=== PATIENT | female | born 1940 | race Caucasian/White ===

== ENCOUNTER 2020-10-28 22:21 | Emergency (ER) | payer OTHER, SELFPAY ==
--- NOTE | 2020-10-28 22:27 | DI.RAD.S_ITS ---
PROCEDURE: XR ANKLE RT MIN 3V INDICATIONS: deformity TECHNIQUE: 3 views of the ankle were acquired. COMPARISON: None. FINDINGS: Bones: There are both fractures and dislocation, involving the distal tibia and fibula. Fibular fractures are comminuted, and dorsally angulated on the lateral view. The tibial fracture appears to include a posterior malleolar avulsion, and anterior dislocation of the tibial plafond and from the talar dome.. Ankle mortise is normally aligned. No suspicious bony lesions. Soft tissues: No tibiotalar joint effusion. Achilles tendon appears normal. IMPRESSION: Fracture dislocations at the distal tibia and fibula with anterior dislocation of the distal tibial plafond and secondary posterior angulation at the comminuted distal fibular fracture. Orthopedic surgical intervention is anticipated. Dictated by: Chuck Chun M.D. on 10/29/2020 at 9:06 Approved by: Chuck Chun M.D. on 10/29/2020 at 9:08
[2020-10-28 22:28] VITALS: BP 177/76; PULSE 62; RESP 14; TEMP 36.6; O2SAT 95; BMI 28.1
--- NOTE | 2020-10-28 23:06 | DI.RAD.S_ITS ---
PROCEDURE: XR ANKLE RT MIN 3V INDICATIONS: post reduction TECHNIQUE: 3 views of the ankle were acquired. COMPARISON: [facility], CR, XR ANKLE RT MIN 3V, 10/28/2020, 22:28. FINDINGS: Bones: No new fractures or dislocations and there has been successful reduction of the fracture dislocation at the right ankle. It is now clear that there is a vertically oriented fracture above the medial border of the tibial plafond and, at the base of the lateral malleolus in that area.. Ankle mortise is normally aligned. No suspicious bony lesions. Soft tissues: No tibiotalar joint effusion. Achilles tendon appears normal. IMPRESSION: Reduction of fractured dislocation with significant remaining in malalignment and fractures now are seen at the high base of the medial malleolus, at the distal fibular metadiaphyseal junction, likely at the posterior malleolus and likely also at the anterior malleolus where a chip margin fracture may be present. Dictated by: Chuck Chun M.D. on 10/29/2020 at 9:54 Approved by: Chuck Chun M.D. on 10/29/2020 at 10:07
--- NOTE | 2020-10-28 23:06 | ED.LOWEXIN ---
HPI - Extremity Injury (Lower) General Chief Complaint: Extremity Injury, Lower Stated Complaint: Fall Time Seen by Provider: 10/28/20 22:38 Source: patient and EMS Mode of arrival: EMS Limitations: no limitations History of Present Illness HPI Narrative: Patient is a 80-year-old female. Not on anticoagulation here for evaluation of a right ankle injury. Patient states that earlier this evening she was coming down some steps and she missed a step. In order to avoid falling on concrete she twisted herself and in the process injured her right leg. She was then able to ambulate afterwards. EMS was called. She denied hitting her head. There was no loss of conscious. No neck pain. No other injuries except for the right ankle pain. Related Data Previous Rx's Medication Instructions Recorded hydrocodone 5 mg-acetaminophen 325 1 tab PO Q4-6H PRN #20 tab 10/29/20 mg tablet Allergies Allergy/AdvReac Type Severity Reaction Status Date / Time No Known Drug Allergies Allergy Verified 10/28/20 22:38 Review of Systems Constitutional Constitutional: Reports system reviewed and no additional complaints, except as documented Eyes Eyes: Reports system reviewed and no additional complaints, except as documented ENT Ears, Nose, Mouth, and Throat: Reports system reviewed and no additional complaints, except as documented Cardiovascular Cardiovascular: Reports system reviewed and no additional complaints, except as documented Respiratory Respiratory: Reports system reviewed and no additional complaints, except as documented Gastrointestinal Gastrointestinal: Reports system reviewed and no additional complaints, except as documented Musculoskeletal Comments: Right ankle pain Integumentary/Breasts Skin/Breast: Reports system reviewed and no additional complaints, except as documented Neurologic Neurologic: Reports system reviewed and no additional complaints, except as documented Psychiatric Psychiatric: Reports system reviewed and no additional complaints, except as documented Hematologic/Lymphatic On Anticoagulants: No Allergic/Immunologic Allergic/Immunologic: Reports system reviewed and no additional complaints, except as documented Patient History Medical History Hypertension Social History Smoking Status: Never smoker Smoking Status: Never smoker alcohol intake frequency: holidays/special occasions only Substance Use Type: does not use Exam Initial Vital Signs Initial Vital Signs: Vital Signs Temperature 98 F 10/28/20 22:28 Pulse Rate 62 10/28/20 22:28 Respiratory Rate 14 10/28/20 22:28 Blood Pressure 177/76 H 10/28/20 22:28 Pulse Oximetry 95 10/28/20 22:28 Const General: cooperative, healthy appearing and comfortable HENMT Head: normal to inspection and normocephalic Eyes General: appearance normal, both eyes and all related structures Resp Effort & Inspection: normal respiratory effort Cardio Rate: regular rate Pulses: dorsalis pedis present on the right GI Inspection: normal to inspection Back/Spine/Pelvis Cervical Spine: No cervical spinal tenderness Skin General: no rashes or lesions noted Neuro General: patient alert, patient awake and patient oriented x3 Sensory Exam: no sensory deficits noted Extrem Other: Bilateral upper extremities unremarkable. Pelvis is stable. Left lower extremity unremarkable. Patient's right hip and right knee unremarkable. Has obvious deformity to the right ankle. Psych Appearance: grossly normal and well kempt Procedures Orthopedic Fracture Reduction Fracture #1: Time Out Performed: Yes Side: right Fracture Reduction Location: tibia and fibula Analgesia: procedural sedation Technique: direct manipulation Post Reduction X-rays Demonstrate: acceptable reduction Post-reduction neuro exam: intact Post-reduction vascular exam: intact Splint Applied: Yes Patient Tolerated Procedure: Well and No complications Orthopedic Joint Reduction Joint #1: Time Out Performed: Yes Side: right Joint Reduction Location: ankle Analgesia: procedural sedation Technique used: direct manipulation Post-reduction neuro exam: intact Post-reduction vascular: intact Post Reduction X-Ray Obtained: Yes Post Reduction X-Ray Results: reduced Splint Applied: Yes Patient Tolerated Procedure: Well and No complications Orthopedic Splinting/Casting Injury #1: Side: right Lower Extremity Injury Location: ankle Lower Extremity Immobilizer: posterior splint and stirrup splint Other Orthopedic Equipment: crutches Post splinting neuro exam: intact Post splinting vascular exam: intact Placed by: Provider Procedural Sedation Consent signed: No Time out performed: Yes Indication: fracture/dislocation reduction Presedation Evaluation: See HPI ASA Class: II Mallampati Airway Classification: Class II Preparation: wax pattern assembler applied, pulse oximeter, capnometry used, supplemental O2 applied, suction/airway equipment at bedside and IV secured IV Propofol dose (mg): 70 Intraservice time/total sedation time (min): 15 ED Sedation Level: Moderate (Concious) Patient Tolerated Procedure: Well and No complications Complications: none Course Orders Ordered: ED Orders 10/28/20 22:27 XR ankle RT min 3V Stat 10/28/20 23:06 XR ankle RT min 3V Stat 10/28/20 23:07 RT Consult Eval and Treat Now Sodium Chloride (Normal Saline 0.9%) 1,000 mls @ 125 mls/hr IV CONT MANDI Last Infusion: 10/29/20 02:19 Dose: 0 mls/hr Documented by: Admin: 10/29/20 00:47 Dose: 125 mls/hr Documented by: HEBER Discontinued Medications Hydrocodone Bitart/Acetaminophen (Hydrocodone/Acet 5/325 Tablet) 2 tab PO NOW ONE Stop: 10/29/20 00:41 Last Admin: 10/29/20 00:49 Dose: 2 tab Documented by: HEBER Hydrocodone Bitart/Acetaminophen (Hydrocodone/Acet 5/325 Prepack) 1 bottle MISC SEEINSTR ONE Stop: 10/29/20 02:26 Last Admin: 10/29/20 02:39 Dose: 1 bottle Documented by: HEBER Propofol (Propofol 200 Mg/20 Ml Vial) 70 mg 1 mg/kg (70 mg) IV NOW ONE Stop: 10/28/20 23:07 Last Admin: 10/29/20 00:49 Dose: 70 mg Documented by: HEEBR Vital Signs Vital signs: Vital Signs - 8 hr 10/28/20 22:28 10/28/20 23:30 10/28/20 23:45 Temperature 98 F Pulse Rate 62 78 84 Respiratory Rate 14 35 H 28 H Blood Pressure 177/76 H Pulse Oximetry 95 95 96 10/28/20 23:57 10/29/20 00:00 10/29/20 00:01 Temperature Pulse Rate 85 80 67 Respiratory Rate 28 H 40 H 14 Blood Pressure 146/65 H Pulse Oximetry 97 97 10/29/20 00:10 10/29/20 00:15 10/29/20 00:21 Temperature Pulse Rate 82 74 65 Respiratory Rate 31 H 33 H 30 H Blood Pressure 168/72 H 134/61 155/69 H Pulse Oximetry 98 98 97 10/29/20 00:30 10/29/20 00:45 10/29/20 01:00 Temperature Pulse Rate 62 67 62 Respiratory Rate 36 H 30 H 30 H Blood Pressure 152/67 H 153/71 H Pulse Oximetry 96 96 97 10/29/20 01:01 10/29/20 01:15 10/29/20 01:30 Temperature Pulse Rate 70 71 69 Respiratory Rate 25 H 27 H 26 H Blood Pressure 177/72 H 169/73 H 167/72 H Pulse Oximetry 98 98 98 10/29/20 01:45 Temperature Pulse Rate 69 Respiratory Rate 32 H Blood Pressure 139/60 Pulse Oximetry 98 MDM - Extremity Injury (Lower) Imaging Data Extremity x-ray #1: Radiologist's Impression: Displaced trimalleolar fractures Posterior ankle dislocation Postreduction x-ray: Radiologist's Impression: Interval placement of cast and closed reduction of trimalleolar fractures with significant improvement particularly distal fibular metaphyseal fracture Adequate reduction of previously noted posterior ankle dislocation MDM Narrative Medical decision making narrative: This was a mechanical fall. Patient was neurovascularly intact both prior to the reduction and afterwards. There were no skin breaks over her right ankle. The splint was placed as indicated above. No other injuries reported from the event from the patient or found on the exam. I feel that we can hold on any further radiologic studies. Patient is visiting this area if she would like to return home in order to follow-up with orthopedic providers at that area. She was given care instructions and return precautions with regard to the splint. She was also given crutches and pain medication. She was given a copy of her x-rays on a CD. She was also instructed that she should take an aspirin if she is going to spend an extended amount of time immobilized in a car on her ride home. We did discuss the importance of moving her leg in getting up as much as possible. She expressed understanding and agreement with this plan. Discharge Plan Departure Patient Disposition: Home Clinical Impression: Ankle fracture, right Instructions: How to Use Crutches, DI for Ankle Fracture, How to Take Care of Your Splint Activity Restrictions/Additional Instructions: The splint needs to stay on and stay clean and stay dry. Do not walk on your right lower extremity. Use the crutches. Use the pain medication as needed. I do recommend that you also purchase a stool softener [id number] and start taking that as directed. I also recommend that later today you contact a orthopedic provider back in your home state for follow-up for when you return home as you most likely will require surgery. Return to the emergency department for any new or worsening symptoms Prescriptions: New hydrocodone-acetaminophen 5-325 mg tablet 1 tab PO Q4-6H PRN (Reason: pain) Qty: 20 RF: 0
[2020-10-28 23:30] VITALS: PULSE 78; RESP 35; O2SAT 95
[2020-10-28 23:45] VITALS: PULSE 84; RESP 28; O2SAT 96
[2020-10-28 23:57] VITALS: BP 146/65; PULSE 85; RESP 28; O2SAT 97
[2020-10-29] VITALS (12 sets, daily range): BP systolic 134–177; BP diastolic 60–73; PULSE 62–82; RESP 14–40; O2SAT 96–98
[2020-10-29] MEDS: SODIUM CHLORIDE 0.9% 1,000 ML 125 ML IV (00:47)
[2020-10-29] MEDS: propofoL 200 MG/20 ML VIAL 70 MG IV (00:49)
[2020-10-29] MEDS: HYDROCODONE/ACET 5/325 TABLET 2 TAB PO (00:49)
[2020-10-29] MEDS: HYDROCODONE/ACET 5/325 PREPACK 1 BOTTLE MISC (02:39)
== END 2020-10-29 03:00 | disposition home or self-care (01) ==
PROVIDERS: Emergency Provider Emergency Medicine
DX: S82.891A Other fracture of right lower leg, initial encounter for closed fracture (principal); X50.1XXA Overexertion from prolonged static or awkward postures, initial encounter
CPT/HCPCS: 27752; 73610; 96360; 96361; 99152; 99284; J2704